=== PATIENT | male | born 1985 | race Caucasian/White ===

== ENCOUNTER 2019-06-21 17:49 | Emergency (ER) | payer MEDICAID ==
[~2019-06-21] VITALS: Ht 188 cm; Wt 100.0 kg
[~2019-06-21 17:49] MED LIST: CLON.5 PO; DIVA-78 PO
[2019-06-21 18:10] LABS: GLUCOSE,POINT OF CARE 85 MG/DL (70-110)
[2019-06-21 21:01] VITALS: BP 133/75
== END 2019-06-21 21:06 | disposition home or self-care (01) ==
LOC: EMS 17:49
DX: J40 Bronchitis, not specified as acute or chronic (principal); E11.9 Type 2 diabetes mellitus without complications; Z59.0 Homelessness

== ENCOUNTER 2020-03-17 16:40 | Emergency (ER) | payer MEDICAID ==
[~2020-03-17 16:40] MED LIST changes: +CLON-592 PO; -CLON.5 PO; +DIVA-112 PO; -DIVA-78 PO
== END 2020-03-17 17:26 | disposition left against medical advice (07) ==
LOC: EMS 16:40
DX: F41.0 Panic disorder [episodic paroxysmal anxiety] (principal); Z53.21 Procedure and treatment not carried out due to patient leaving prior to being seen by health care provider

== ENCOUNTER 2020-03-17 18:22 | Emergency (ER) | payer MEDICAID ==
[~2020-03-17] VITALS: Ht 188 cm; Wt 125.9 kg
[2020-03-17 18:25] VITALS: BP 128/86
== END 2020-03-17 20:45 | disposition left against medical advice (07) ==
LOC: EMS 18:24
DX: F41.0 Panic disorder [episodic paroxysmal anxiety] (principal); Z53.21 Procedure and treatment not carried out due to patient leaving prior to being seen by health care provider

== ENCOUNTER 2024-06-07 01:25 | Emergency (ER) | payer MEDICAID ==
[~2024-06-07] VITALS: Ht 188 cm; Wt 106.8 kg
[2024-06-07 01:31] VITALS: TEMP 98.6
[2024-06-07] MEDS ORDERED: ACETAMINOPHEN 500 MG TABLET PO ONE (02:30)
[2024-06-07 03:06] VITALS: BP 135/70; PULSE 82; RESP 16; O2SAT 96
== END 2024-06-07 04:36 ==
LOC: EMS 01:26
DX: M79.621 Pain in right upper arm (principal); M25.531 Pain in right wrist; F41.9 Anxiety disorder, unspecified; F17.210 Nicotine dependence, cigarettes, uncomplicated; Z79.899 Other long term (current) drug therapy
CPT/HCPCS: 82962; 99283

== ENCOUNTER 2024-11-10 18:22 | Emergency (ER) | payer MEDICAID ==
[~2024-11-10] VITALS: Ht 188 cm; Wt 106.8 kg
[2024-11-10 20:41] LABS: PLATELET COUNT (AUTO) 220 K/uL (150-450); RED BLOOD CELL COUNT(AUTO) 5.51 MIL/uL (4.50-5.90); RED CELL DISTRIBUTION WIDTH 13.1 % (11.5-14.5); WHITE BLOOD COUNT (AUTO) 9.6 K/uL (4.5-11.0)
[2024-11-10 20:44] LABS: COVID AG,FIA SOURCE NPH
[2024-11-10 20:51] LABS: CALCIUM, TOTAL 9.5 mg/dL (8.8-10.5); CREATININE 1.09 mg/dL (0.60-1.30); GLOMERULAR FILTR. RATE CALC > 60 mL/min (>60); GLUCOSE,RANDOM 190 mg/dL (70-110); SODIUM SERUM 140 mmol/L (136-145); UREA NITROGEN, BLOOD 13 mg/dL (7-18)
[2024-11-10 20:52] LABS: APPEARANCE,URINE CLEAR (CLEAR); GLUCOSE, URINE (UA) >=1000 mg/dL (NEGATIVE); LEUKOCYTE ESTERASE ,URINE NEGATIVE (NEGATIVE); NITRATE,URINE NEGATIVE (NEGATIVE); OCCULT BLOOD,URINE TRACE (NEGATIVE); PH,URINE DRUG SCREEN 6.0 (5.0-8.0); SPECIFIC GRAVITIY, URINE 1.031 (1.003-1.030)
[2024-11-10 20:56] LABS: ALCOHOL, URINE DRUG SCREEN NEGATIVE (NEGATIVE); AMPHET/METH SCREEN,URINE NEGATIVE (NEGATIVE); BARBITURATE SCREEN, URINE NEGATIVE (NEGATIVE); CANNABINOID SCREEN,URINE NEGATIVE (NEGATIVE); COCAINE SCREEN,URINE NEGATIVE (NEGATIVE); METHADONE SCREEN, URINE NEGATIVE (NEGATIVE)
[2024-11-10 21:04] LABS: SQUAMOUS EPITHELIAL CELL,UR Few /LPF (None Seen)
[2024-11-10 21:05] LABS: SARS-COV2 (COVID) ANTIGEN,FIA Negative (Negative)
[2024-11-10 21:05] LABS: ALCOHOL, BLOOD (SERUM) < 3 mg/dL (0-10)
[2024-11-10 21:57] VITALS: BP 146/89; PULSE 101; RESP 18; TEMP 98.5; O2SAT 97
[2024-11-10] MEDS ORDERED: HYDR50CA7 PO (21:58)
== END 2024-11-10 22:07 | disposition home or self-care (01) ==
LOC: EMS 18:22
DX: F41.9 Anxiety disorder, unspecified (principal); F17.210 Nicotine dependence, cigarettes, uncomplicated; F15.90 Other stimulant use, unspecified, uncomplicated; E11.9 Type 2 diabetes mellitus without complications; G47.00 Insomnia, unspecified; Z20.822 Contact with and (suspected) exposure to COVID-19
CPT/HCPCS: 99283; 87426; 80048; 81001; 84443; 85025; 36415; 80307; G0480